=== PATIENT | male | born 1930 | race Caucasian/White ===

== ENCOUNTER 2018-05-19 10:15 | Emergency (ER) | payer OTHER ==
[~2018-05-19 10:15] MED LIST: ALLO100T PO; APIX1TAB PO; ASPI81TA28 PO; ATOR-24 PO; DUTA0.5C PO; FAMO20TA11 PO; GLIP10TA9 PO; HYDR-5688 PO; IBUP-1459 PO; IRON PO; LISI-791 PO; METO50TA16 PO; NIFE-64 PO; PANT40TA PO; SERT25TA PO; TAMS0.4C38 PO; VITAMIN B-12 PO; VITAMIN D3 PO; levimir
[2018-05-19 10:18] VITALS: TEMP 36.6
[2018-05-19] MEDS ORDERED: SODIUM CHLORIDE 0.9% 250ML 250 ML IV STA (10:34)
[2018-05-19] MEDS ORDERED: SODIUM CHLORIDE 0.9% 1000ML 1,000 ML IV STA (10:34)
[2018-05-19] MEDS ORDERED: GLIP5TAB11 PO (11:01)
[2018-05-19] MEDS ORDERED: LEVIMIR ×2 (11:04)
[2018-05-19 11:09] LABS: BASO % 0.2 %; BASO ABS # 0.01 K/uL (0-0.2); EOS % 0.9 %; EOS ABS # 0.06 K/uL (0-0.5); HEMATOCRIT 24.7 % (42-52); HEMOGLOBIN 7.8 g/dL (14.0-18.0); IG# 0.01 K/uL (0.00-0.02); LYMPH % 7.9 %; MEAN CELL VOLUME 88.5 fL (80-100); MEAN CORPUSCULAR HGB CONC 31.6 g/dl (32-36); MEAN PLATELET VOLUME 9.5 fL (7.4-10.4); MONO % 5.8 %; MONO ABS # 0.37 K/uL (0.11-0.59); PLATELET COUNT 196 K/uL (130-400); RED CELL DISTRIBUTION WIDTH CV 14.6 % (11.5-14.5); RED CELL DISTRIBUTION WIDTH SD 47.9 fL (36.4-46.3); WHITE BLOOD COUNT 6.35 K/uL (4.8-10.8)
[2018-05-19 11:29] LABS: ALBUMIN 3.1 gm/dl (3.4-5.0); ALKALINE PHOSPHATASE 97 U/L (45-117); ALT/SGPT 20 U/L (12-78); AST/SGOT 15 U/L (15-37); BLOOD UREA NITROGEN 46 mg/dl (7-18); CARBON DIOXIDE 25 mmol/L (21-32); CREATININE 2.04 mg/dl (0.60-1.40); GLUCOSE 293 mg/dl (70-99); POTASSIUM 4.9 mmol/L (3.5-5.1); SODIUM 137 mmol/L (136-145)
--- NOTE | 2018-05-19 11:56 | DIAGNOSTIC IMAGING REPORT ---
CT SCAN OF THE ABDOMEN AND PELVIS WITHOUT CONTRAST CLINICAL HISTORY: Prostate carcinoma. Lower abdominal pain. Difficulty urinating. COMPARISON STUDY: No previous studies for comparison. TECHNIQUE: CT scan of the abdomen and pelvis was performed from the lung bases to the proximal femurs. Images are reviewed in the axial, sagittal, and coronal planes. IV contrast was not administered for this examination. A dose lowering technique was utilized adhering to the principles of ALARA. CT DOSE: 718.27 mGy.cm FINDINGS: Lower chest: The heart is enlarged. There are basilar atelectatic changes. Liver: The unenhanced liver is normal in size, contour, and attenuation. There is no intrahepatic biliary ductal dilatation. Gallbladder: Cholelithiasis Spleen: Normal in size and attenuation. Pancreas: There are multiple cystic pancreatic masses. Associated ductal dilatation of pancreatic body and tail cannot be excluded on this noncontrast study. Adrenal glands: Unremarkable. Kidneys: There are multiple bilateral renal masses, likely representing cysts. The largest measures 5.5 cm on the left and 3 cm on the right. No renal calculi are visualized. There is mild prominence of each renal pelvis and both ureters. No ureteral calculi are visualized. Bowel: There are no transition zones indicate bowel obstruction. The appendix appears normal. There is no acute diverticulitis. Peritoneum: There is no intraperitoneal free air or abdominal ascites. There is very subtle infiltration central mesentery, likely secondary to a enteritis. Vasculature: The abdominal aorta is normal in course and caliber. Adenopathy: None. Pelvic viscera: There is mild prostamegaly. There is mild bladder wall thickening. There is minimal infiltration of the perivesical fat. Skeletal structures: No destructive osseous lesions are seen. IMPRESSION: 1. Multiple bilateral renal masses, likely representing cysts 2. Mild fullness of each renal collecting system and ureter. No renal, ureteral, or bladder calculi identified 3. Mild prostamegaly 4. Mild bladder wall thickening with minimal infiltration of the perivesical fat. Correlation with urinalysis is recommended to exclude a cystitis 5. No evidence of bowel obstruction. No evidence of free air 6. Normal appendix. No evidence of diverticulitis 7. Multiple cystic pancreatic masses measuring up to 2 cm in diameter. Contrast-enhanced MRI would be considered the test of choice in follow-up if deemed clinically appropriate Electronically signed by: Landen Gee M.D. 05/19/2018 11:55 AM Dictated Date/Time: 05/19/2018 11:46 AM
[2018-05-19] MEDS ORDERED: SULFAMETHOXAZOLE/TRIMETHOPRIM 400/80MG TAB PO SCH (13:30)
[2018-05-19] MEDS ORDERED: SULF1TAB92 PO (13:54)
[2018-05-19 14:36] VITALS: BP 166/83; PULSE 55; O2SAT 98
--- NOTE | 2018-05-19 14:52 | EMERGENCY ROOM VISIT NOTE ---
History Report prepared by Alber: Addis Gomez Under the Supervision of: Dr. Chyna Hope M.D. First contact with patient: 10:21 Chief Complaint: URINARY SYMPTOMS Stated Complaint: TROUBLE URINATING History of Present Illness The patient is an 87 year old male who presents to the Emergency Room with complaints of worsening urinary symptoms for 6 days. The patient reports having a pain across his abdomen and pain in his penis when he urinates. The patient says he sometimes can urinate for a minute, but other times can only urinate a few drops. The patient states when he urinates his urine is white. He reports he takes Flomax once a day. He states he drinks 3 bottles of water every day, but hasn't today. The patient complains of difficulty walking. Per family, the patient has been experiencing increasing mental confusion over the past few months. The patient states he has a history of prostate cancer and received radiation treatments. He notes that he is in Stage 3 Renal Failure. Source of History: patient Onset: 6 days ago Quality: other (urinary symptoms) Timing: worsening Modifying Factors (Worsening): urination Associated Symptoms: + abdominal pain Note: The patient complains of penis pain and difficulty walking. The patient's son complains of the patient having mental confusion. Review of Systems See HPI for pertinent positives & negatives. A total of 10 systems reviewed and were otherwise negative. Past Medical & Surgical Medical Problems: (1) History of prostate cancer (2) Renal calculi (3) Renal failure Family History Cancer Diabetes mellitus Heart disease Hypertension Social History Smoking Status: Never Smoker Drug Use: none Marital Status: Housing Status: lives with family Occupation Status: retired Current/Historical Medications Scheduled Allopurinol (Zyloprim), 100 MG PO BID Apixaban (Eliquis), 2.5 MG PO BID Aspirin (Aspirin Ec), 81 MG PO HS Atorvastatin (Lipitor), 40 MG PO DAILY Dutasteride (Avodart), 5 MG PO DAILY Famotidine (Pepcid), 20 MG PO DAILY Glipizide (Glucotrol), 5 MG PO BID Lisinopril (Zestril), 5 MG PO DAILY Metoprolol Tartrate (Lopressor) (Lopressor), 50 MG PO BID Pantoprazole (Protonix), 40 MG PO DAILY Sertraline (Zoloft), 1 TAB PO DAILY Tamsulosin Hcl (Flomax), 0.4 MG PO DAILY Trimethoprim/Sulfamethoxazole (Bactrim 400MG/80MG), 1 TAB PO Q12H [Levimir Sq], 20 UNITS SQ QAM [Levimir], 17 UNITS SQ HS [Vitamin B-12], 1 TAB PO DAILY [Vitamin D3], 1 TABLET PO DAILY Allergies Coded Allergies: Metformin (Verified Allergy, Unknown, stage 3 renal disease, 05/19/18) Fentanyl (Unverified Adverse Reaction, Intermediate, LARGE DROP IN HEART RATE, 05/19/18) Physical Exam Vital Signs Date Time Temp Pulse Resp B/P (MAP) Pulse Ox O2 Delivery O2 Flow Rate FiO2 05/19/18 14:36 55 166/83 98 05/19/18 11:59 53 16 166/73 100 Room Air 05/19/18 10:18 36.6 62 18 152/71 97 Room Air Physical Exam Vital signs reviewed. General: Fairly well-appearing, elderly, in no significant distress. HEENT: No scleral icterus, PERRLA, neck supple. Atraumatic. Hard of hearing. Cardiovascular: Regular rate and rhythm, no extra sounds. Pulmonary: Clear to auscultation bilaterally, normal work of breathing. Abdomen: Soft, nontender, nondistended, positive bowel sounds. Musculoskeletal: Atraumatic, no peripheral edema. Neurologic: Patient awake alert and oriented x 3, full strength in all 4 extremities. Cranial nerves 2 through 12 grossly intact. Skin: Warm, dry, no rash Medical Decision & Procedures ER Provider Diagnostic Interpretation: Radiology results as stated below per my review and radiologist interpretation: CT SCAN OF THE ABDOMEN AND PELVIS WITHOUT CONTRAST CLINICAL HISTORY: Prostate carcinoma. Lower abdominal pain. Difficulty urinating. COMPARISON STUDY: No previous studies for comparison. TECHNIQUE: CT scan of the abdomen and pelvis was performed from the lung bases to the proximal femurs. Images are reviewed in the axial, sagittal, and coronal planes. IV contrast was not administered for this examination. A dose lowering technique was utilized adhering to the principles of ALARA. CT DOSE: 718.27 mGy.cm FINDINGS: Lower chest: The heart is enlarged. There are basilar atelectatic changes. Liver: The unenhanced liver is normal in size, contour, and attenuation. There is no intrahepatic biliary ductal dilatation. Gallbladder: Cholelithiasis Spleen: Normal in size and attenuation. Pancreas: There are multiple cystic pancreatic masses. Associated ductal dilatation of pancreatic body and tail cannot be excluded on this noncontrast study. Adrenal glands: Unremarkable. Kidneys: There are multiple bilateral renal masses, likely representing cysts. The largest measures 5.5 cm on the left and 3 cm on the right. No renal calculi are visualized. There is mild prominence of each renal pelvis and both ureters. No ureteral calculi are visualized. Bowel: There are no transition zones indicate bowel obstruction. The appendix appears normal. There is no acute diverticulitis. Peritoneum: There is no intraperitoneal free air or abdominal ascites. There is very subtle infiltration central mesentery, likely secondary to a enteritis. Vasculature: The abdominal aorta is normal in course and caliber. Adenopathy: None. Pelvic viscera: There is mild prostamegaly. There is mild bladder wall thickening. There is minimal infiltration of the perivesical fat. Skeletal structures: No destructive osseous lesions are seen. IMPRESSION: 1. Multiple bilateral renal masses, likely representing cysts 2. Mild fullness of each renal collecting system and ureter. No renal, ureteral, or bladder calculi identified 3. Mild prostamegaly 4. Mild bladder wall thickening with minimal infiltration of the perivesical fat. Correlation with urinalysis is recommended to exclude a cystitis 5. No evidence of bowel obstruction. No evidence of free air 6. Normal appendix. No evidence of diverticulitis 7. Multiple cystic pancreatic masses measuring up to 2 cm in diameter. Contrast-enhanced MRI would be considered the test of choice in follow-up if deemed clinically appropriate Electronically signed by: Landen Gee M.D. 05/19/2018 11:55 AM Dictated Date/Time: 05/19/2018 11:46 AM Laboratory Results 05/19/18 11:01 Red Blood Count 2.79, Mean Corpuscular Volume 88.5, Mean Corpuscular Hemoglobin 28.0, Mean Corpuscular Hemoglobin Concent 31.6, Mean Platelet Volume 9.5, Neutrophils (%) (Auto) 85.0, Lymphocytes (%) (Auto) 7.9, Monocytes (%) (Auto) 5.8, Eosinophils (%) (Auto) 0.9, Basophils (%) (Auto) 0.2, Neutrophils # (Auto) 5.40, Lymphocytes # (Auto) 0.50, Monocytes # (Auto) 0.37, Eosinophils # (Auto) 0.06, Basophils # (Auto) 0.01 05/19/18 11:01 Test 05/19/18 10:29 05/19/18 11:01 05/19/18 11:53 Bedside Glucose 308 mg/dl (70-99) White Blood Count 6.35 K/uL (4.8-10.8) Red Blood Count 2.79 M/uL (4.7-6.1) Hemoglobin 7.8 g/dL (14.0-18.0) Hematocrit 24.7 % (42-52) Mean Corpuscular Volume 88.5 fL (80-100) Mean Corpuscular Hemoglobin 28.0 pg (25-34) Mean Corpuscular Hemoglobin Concent 31.6 g/dl (32-36) Platelet Count 196 K/uL (130-400) Mean Platelet Volume 9.5 fL (7.4-10.4) Neutrophils (%) (Auto) 85.0 % Lymphocytes (%) (Auto) 7.9 % Monocytes (%) (Auto) 5.8 % Eosinophils (%) (Auto) 0.9 % Basophils (%) (Auto) 0.2 % Neutrophils # (Auto) 5.40 K/uL (1.4-6.5) Lymphocytes # (Auto) 0.50 K/uL (1.2-3.4) Monocytes # (Auto) 0.37 K/uL (0.11-0.59) Eosinophils # (Auto) 0.06 K/uL (0-0.5) Basophils # (Auto) 0.01 K/uL (0-0.2) RDW Standard Deviation 47.9 fL (36.4-46.3) RDW Coefficient of Variation 14.6 % (11.5-14.5) Immature Granulocyte % (Auto) 0.2 % Immature Granulocyte # (Auto) 0.01 K/uL (0.00-0.02) Hypochromasia PRESENT Anisocytosis PRESENT Anion Gap 5.0 mmol/L (3-11) Estimated GFR () 32.7 Estimated GFR (Non- 28.3 BUN/Creatinine Ratio 22.7 (10-20) Calcium Level 8.0 mg/dl (8.5-10.1) Total Bilirubin 0.4 mg/dl (0.2-1) Direct Bilirubin 0.2 mg/dl (0-0.2) Aspartate Amino Transf (AST/SGOT) 15 U/L (15-37) Alanine Aminotransferase (ALT/SGPT) 20 U/L (12-78) Alkaline Phosphatase 97 U/L (45-117) Total Protein 7.0 gm/dl (6.4-8.2) Albumin 3.1 gm/dl (3.4-5.0) Urine Color YELLOW Urine Appearance CLEAR (CLEAR) Urine pH 6.5 (4.5-7.5) Urine Specific Shipman 1.009 (1.000-1.030) Urine Protein NEG (NEG) Urine Glucose (UA) 2+ (NEG) Urine Ketones NEG (NEG) Urine Occult Blood TRACE (NEG) Urine Nitrite NEG (NEG) Urine Bilirubin NEG (NEG) Urine Urobilinogen NEG (NEG) Urine Leukocyte Esterase LARGE (NEG) Urine WBC (Auto) >30 /hpf (0-5) Urine RBC (Auto) 0-4 /hpf (0-4) Urine Hyaline Casts (Auto) 0 /lpf (0-5) Urine Epithelial Cells (Auto) 0-5 /lpf (0-5) Urine Bacteria (Auto) 1+ (NEG) Laboratory results per my review. Medications Administered Medications (Trade) Dose Ordered Sig/Shi Route Start Time Stop Time Status Last Admin Dose Admin Sodium Chloride 250 ml @ 999 mls/hr Q16M STAT IV 05/19/18 10:34 05/19/18 10:49 DC 05/19/18 10:34 999 MLS/HR Sodium Chloride 1,000 ml @ 125 mls/hr Q8H STAT IV 05/19/18 10:34 05/19/18 15:21 DC 05/19/18 10:34 125 MLS/HR ED Course 1032: Past medical records reviewed. The patient was evaluated in room B3B. A complete history and physical examination was performed. 1034: Ordered NSS 1000 ml @ 125 mls/hr IV, NSS 250 ml @ 999 mls/hr IV. 1330: Ordered Septra 400/80MG Tab 1 tab PO. 1341: Upon reevaluation, the patient appeared to have improvement of his symptoms. I discussed findings with him. He verbalized agreement of the treatment plan. The patient was discharged home. Medical Decision Differential diagnoses include UTI, prostatitis, kidney stone, diverticulitis, constipation, urinary retention. This patient was evaluated and appeared to be in no significant distress. Physical examination reveals an elderly male without an acute abdomen. Patient was hydrated with normal saline solution. WBC count is normal. Renal function is somewhat impaired with a creatinine clearance of 28. UA is significant for infection. The patient is of an advanced elderly age, I do not think a fluoroquinolone is in his best interest at this time. Bactrim SS twice daily for 7 days will be administered. Patient was given his first dose in the emergency department. He will follow up with his PCP this week for reevaluation , urology as needed. He will return to the ED for worsening of symptoms or any medical concerns. Medication Reconcilliation Current Medication List: was personally reviewed by me Blood Pressure Screening Patient's blood pressure: Elevated blood pressure Blood pressure disposition: Referred to PCP Impression Primary Impression: Urinary tract infection Scribe Attestation The scribe's documentation has been prepared under my direction and personally reviewed by me in its entirety. I confirm that the note above accurately reflects all work, treatment, procedures, and medical decision making performed by me. Departure Information Dispostion Home / Self-Care Prescriptions Trimethoprim/Sulfamethoxazole (Bactrim 400MG/80MG) Tab 1 TAB PO Q12H for 7 Days, #14 TAB Prov: Chyna Hope M.D. 05/19/18 Referrals Keshav Cortez D.O. (PCP) Forms HOME CARE DOCUMENTATION FORM, IMPORTANT VISIT INFORMATION Patient Instructions My [facility] Additional Instructions Diagnosis: UTI Bactrim SS 1 tab twice daily for 7 days. Please drink plenty of clear fluids. Follow-up with your primary care physician this week for reevaluation. Return to the emergency department for worsening of symptoms or any medical concerns.
--- NOTE | 2018-05-21 14:12 | Pharmacy Progress Note ---
ED Pharmacist Culture FollowUp Date of Service: May 21, 2018. Patient was sent home with a prescription for Bactrim RS 1 PO BID x 7 days, which should cover the e coli growing from the patient's URINE culture.
== END 2018-05-19 14:37 | disposition home or self-care (01) ==
LOC: C.EDB 10:17
DX: N39.0 Urinary tract infection, site not specified (principal); Z85.46 Personal history of malignant neoplasm of prostate; N18.3 Chronic kidney disease, stage 3 (moderate); Z87.442 Personal history of urinary calculi; Z80.9 Family history of malignant neoplasm, unspecified; Z83.3 Family history of diabetes mellitus; Z82.49 Family history of ischemic heart disease and other diseases of the circulatory system; Z79.01 Long term (current) use of anticoagulants; Z79.82 Long term (current) use of aspirin; Z79.84 Long term (current) use of oral hypoglycemic drugs; Z79.899 Other long term (current) drug therapy; Z88.8 Allergy status to other drugs, medicaments and biological substances